=== PATIENT | male | born 1995 | race Hispanic/Latino ===

== ENCOUNTER 2017-05-22 16:37 | Outpatient (CLI) | payer OTHER ==
--- NOTE | 2017-05-22 18:00 | RAD ---
FRONTAL RADIOGRAPH CHEST: 05/22/17 COMPARISON: None. HISTORY: Pain, fall. FINDINGS: There is no pneumothorax, pleural fluid, focal consolidation, or alveolar edema. Heart and mediastina l contours are grossly unremarkable. IMPRESSION: No acute findings. POS: [facility]
== END 2017-05-22 16:38 | disposition home or self-care (01) ==
LOC: RAD 16:37
PROVIDERS: ATTEND Family Medicine
DX: R07.9 Chest pain, unspecified (principal)
CPT/HCPCS: 71045

== ENCOUNTER 2024-10-22 22:08 | Emergency (ER) | payer SELFPAY ==
[2024-10-22] MEDS ORDERED: Ketorolac Tromethamine 30 MG (1 mL) VIAL ONE (23:55)
[2024-10-23] MEDS ORDERED: Lidocaine 1% PF 5 ML VIAL ONE (00:09)
[2024-10-23] MEDS ORDERED: Boostrix 0.5 ML (Tdap) VIAL (>/=7 yrs of age) ONE (00:36)
== END 2024-10-23 00:40 | disposition home or self-care (01) ==
LOC: ERS 22:08
DX: S60.131A Contusion of right middle finger with damage to nail, initial encounter (principal); W23.1XXA Caught, crushed, jammed, or pinched between stationary objects, initial encounter
CPT/HCPCS: 11740; 90715; 96372; 99283; J1885